=== PATIENT | female | born 1970 | race Caucasian/White ===

== ENCOUNTER → 2017-01-03 | Outpatient (CLI) | payer OTHER | LOC: RAD 14:15 | PROVIDERS: ATTEND Nurse Practitioner Family | DX: I10 Essential (primary) hypertension (principal) ==

== ENCOUNTER → 2017-01-05 | Outpatient (CLI) | payer OTHER ==
--- NOTE | 2017-01-05 13:07 | Diagnostic Imaging Report ---
EXAMINATION: Duplex vascular ultrasound. INDICATION: Sudden onset hypertension. FINDINGS: The right kidney is 9.2 and the left kidney is 10.3 cm in length. There is no hydronephrosis or focal lesion. The right renal artery is obscured by bowel gas. The resistive index in the right kidney is 0.52 to 0.59 with dampening of the amplitude seen. The left renal artery is obscured in its proximal and mid aspect by bowel gas. The distal renal artery velocity is 69 cm/s. The resistive index in the left kidney is in the range of 0.57 to 0.68. IMPRESSION: The renal arteries are largely obscured. There is diminished amplitude of the arterial waveforms in the right kidney which could correlate with renal artery stenosis. Evaluation with CTA or MRA of the abdomen is recommended. Dictated by: Dictated on workstation # [id number]
== END ==
LOC: RAD 08:04
PROVIDERS: ATTEND Nurse Practitioner Family
DX: I10 Essential (primary) hypertension (principal)
CPT/HCPCS: 93975

== ENCOUNTER 2017-01-09 19:40 | Observation (INO) | payer OTHER ==
[~2017-01-09] VITALS: Ht 175.3 cm; Wt 88.0 kg
[2017-01-09] MEDS ORDERED: TETANUS,DIPTH,PERTUSS P/F (BOOSTRIX) 0.5 ML VIAL IM ONE (19:45)
[2017-01-09 19:50] LABS: BASOPHILS % (AUTO) 0 % (0-10); EOSINOPHILS # (AUTO) 0.1 10^3/uL (0.0-0.3); EOSINOPHILS % (AUTO) 1 % (0-10); LYMPHOCYTES # (AUTO) 4.3 X 10^3 (1.0-4.0); LYMPHOCYTES % (AUTO) 47 % (12-44); MEAN CORPUSCULAR HEMOGLOBIN 30 PG (25-34); MEAN CORPUSCULAR HGB CONC 33 G/DL (32-36); MEAN CORPUSCULAR VOLUME 90 FL (80-99); MEAN PLATELET VOLUME 12.7 FL (7.4-10.4); MONOCYTES # (AUTO) 0.6 X 10^3 (0.0-1.0); MONOCYTES % (AUTO) 7 % (0-12); NEUTROPHILS # (AUTO) 4.2 X 10^3 (1.8-7.8); NEUTROPHILS % (AUTO) 45 % (42-75); PLATELET COUNT 186 10^3/uL (130-400); RED BLOOD COUNT 4.63 10^6/uL (4.35-5.85); RED CELL DISTRIBUTION WIDTH 12.9 % (10.0-14.5); WHITE BLOOD COUNT 9.3 10^3/uL (4.3-11.0)
[2017-01-09 20:03] LABS: PROTHROMBIN TIME PATIENT 12.9 SEC (12.2-14.7)
[2017-01-09 20:18] LABS: ALANINE AMINOTRANSFERASE 12 U/L (0-55); ALBUMIN 4.4 GM/DL (3.2-4.5); ANION GAP 14 MMOL/L (5-14); ASPARTATE AMINO TRANSFERASE 20 U/L (5-34); BILIRUBIN,TOTAL 0.5 MG/DL (0.1-1.0); BLOOD UREA NITROGEN 18 MG/DL (7-18); BUN/CREATININE RATIO 16 (0-20); CALCIUM 9.2 MG/DL (8.5-10.1); CARBON DIOXIDE 22 MMOL/L (21-32); CHLORIDE 101 MMOL/L (98-107); CREATINE KINASE 87 U/L (29-168); CREATININE SERUM 1.11 MG/DL (0.60-1.30); GFR ESTIMATED 52; GLUCOSE 121 MG/DL (70-105); HEMOLYSIS 12 (-100-29); ICTERUS 0.5 (-100-1.9); LIPEMIA 1 (-100-49); MAGNESIUM 2.3 MG/DL (1.8-2.4); POTASSIUM 3.7 MMOL/L (3.6-5.0); SODIUM 137 MMOL/L (135-145); TOTAL PROTEIN 7.2 GM/DL (6.4-8.2)
--- NOTE | 2017-01-09 20:33 | Diagnostic Imaging Report ---
PROCEDURE: CT head, face, and cervical spine without contrast. TECHNIQUE: Multiple contiguous axial images were obtained through the head, neck, and facial bones without the use of intravenous contrast. Sagittal and coronal reformations through the cervical spine and facial bones were also performed. INDICATION: Passed out and fell down stairs. Pain and laceration to left chin and upper lip area. Brain: No hemorrhage or infarct is seen. No mass, mass effect or midline shift is noted and there is no hydrocephalus. The calvarium is intact. Paranasal sinuses demonstrate no evidence for acute disease. CT cervical spine: There is straightening of the normal curvature, otherwise normal alignment seen. No compression deformities appreciated. No fractures visualized. The prevertebral soft tissues demonstrate no evidence for acute disease. The lung apices are grossly unremarkable. IMPRESSION: 1. Degenerative findings throughout the cervical spine but no acute disease appreciated. 2. Negative head CT. CT maxillofacial: Diffuse mucosal thickening seen throughout the sinuses. No air-fluid levels appreciated. No displaced fractures are seen. Nasal bones are fairly symmetric bilaterally. Mild soft tissue prominence overlying the chin on the left side likely known injury and secondary hematoma. No adjacent fractures are appreciated. No sagittal reconstructed imaging is provided. IMPRESSION: 1. Chronic change within the osseous structures. Soft tissue abnormality as noted above adjacent to the left aspect of the chin but no acute fractures are appreciated. Dictated by: Dictated on workstation # [id number]
[2017-01-09 20:37] LABS: TROPONIN I < 0.30 NG/ML (<0.30)
--- NOTE | 2017-01-09 21:02 | Diagnostic Imaging Report ---
INDICATION: Fell today. No complaints of back pain EXAMINATION: CT thoracic and lumbar spine dated 01/09/2017 FINDINGS: There is normal height and alignment of the vertebral bodies throughout the thoracic and lumbar spine. No subluxations appreciated. The canal centrally appears to be patent although limited on CT imaging. Several areas of linear lucencies noted scattered throughout the posterior elements of the thoracic and lumbar spine are felt to represent areas of prominent nutrient foramina. No displaced fractures are appreciated. Within the lower lumbar region fairly marked multilevel facet hypertrophy noted. There is sclerosis bilaterally at the SI joints. Multilevel likely central narrowing seen in the lower lumbar region but does not appear significant. This could be better characterized with MRI as clinically warranted. The visualized intra-abdominal structures poorly characterized due to the bone algorithm technique. Prominence of the left renal pelvic region likely due to peripelvic cysts. The visualized lungs demonstrate no evidence for acute disease. IMPRESSION: 1. Multilevel degenerative findings but no acute fractures are appreciated. If pain persists, MRI recommended. Other incidental findings as noted above. Dictated by: Dictated on workstation # [id number]
--- NOTE | 2017-01-09 21:46 | Diagnostic Imaging Report ---
INDICATION: Passed out, fell down. Pain EXAMINATION: Chest 01/09/17 FINDINGS: The osseous structures are overall somewhat sclerotic in appearance but fairly homogeneous; correlate clinically. There are no fractures appreciated. The lungs are clear. No infiltrates or effusions are seen and there is no pneumothorax. Heart and pulmonary vasculature unremarkable. IMPRESSION: 1. No acute process. Dictated by: Dictated on workstation # [id number]
--- NOTE | 2017-01-09 21:46 | Diagnostic Imaging Report ---
INDICATION: Fell down stairs, pain. EXAMINATION: Pelvis, 01/09/2017. FINDINGS: There is no evidence for an acute fracture or dislocation. The joint spaces are well maintained. There is no significant soft tissue swelling. IMPRESSION: No acute process. Dictated by: Dictated on workstation # [id number]
[2017-01-09 22:06] LABS: BILIRUBIN,URINE NEGATIVE (NEGATIVE); KETONES,URINE NEGATIVE (NEGATIVE); LEUKOCYTE ESTERASE ,URINE NEGATIVE (NEGATIVE); NITRITE,URINE NEGATIVE (NEGATIVE); PH,URINE 6.5 (5-9); PROTEIN,URINE 1+ (NEGATIVE); UROBILINOGEN,URINE NORMAL (NORMAL)
[2017-01-09 22:20] LABS: SQUAMOUS EPITHELIAL CELL,UR RARE /HPF
[2017-01-09 22:45] VITALS: BP 166/77
[2017-01-09 23:00] VITALS: BP 158/79
[2017-01-09 23:15] VITALS: BP 136/71
[2017-01-09] MEDS ORDERED: TRIM/SULFAMETH 160/800 (SEPTRA DS) TAB PO ONE (23:15)
[2017-01-09 23:30] VITALS: BP 138/80
[2017-01-10] VITALS (17 sets, daily range): BP systolic 117–159; BP diastolic 57–88
[2017-01-10] MEDS ORDERED: ONDANSETRON 8 MG (ZOFRAN) ORAL DISSOLVE TAB PO PRN
[2017-01-10] MEDS: ACETAMINOPHEN 500 MG TAB (TYLENOL) PO PRN ×3 (00:04→21:29)
[2017-01-10 02:29] LABS: MYOGLOBIN SERUM 67.8 NG/ML (10.0-92.0); TROPONIN I < 0.30 NG/ML (<0.30)
--- NOTE | 2017-01-10 05:25 | ED General ---
General Chief Complaint: Trauma-Non Activation Stated Complaint: SYNCOPE,CLOSED HEAD INJ,FACIAL ABRASIONS Nursing Triage Note: Pt. became dizzy while walking and fell down her basement stairs. Nursing Sepsis Screen: No Definite Risk Source of Information: Patient, EMS History of Present Illness Time Seen by Provider: 19:37 Initial Comments PT ARRIVES VIA EMS FROM HOME--IN C-COLLAR PT WAS WALKING UP BASEMENT STAIRS AND PASSED OUT-- FOUND HER AT THE BOTTOM OF THE STAIRS DURATION OF LOSS OF CONSCIOUSNESS IS UNKNOWN PT WAS ABLE TO STAND WITH 'S ASSIST, AND NO PAIN IN LEGS OR ARMS NO BACK PAIN NO HEADACHE NO VISION CHANGES NO CHEST PAIN NO SHORTNESS OF BREATH NO PALPITATIONS EMS REPORT THAT PT DID C/O NECK PAIN WHEN THEY PALPATED IT, SO C-COLLAR WAS PLACED. NO PARESTHESIAS OR MOTOR DEFICITS PT HAS ABRASIONS TO NOSE, MOUTH AND CHIN PT C/O BEING VERY WEAK, DIZZY AND NAUSEATED ACCUCHECK 133 BY EMS VITALS WERE NORMAL FOR EMS--BP 120/65, HR 72, O2 SAT 96% ON ROOM AIR PT DOES NOT HAVE A PRIOR HISTORY OF SYNCOPE PT HAS BEEN TO [facility] X 2 IN THE LAST WEEK FOR NEW ONSET OF HTN--STARTED ON LISINOPRIL STATES BP HAS BEEN GOING UP REALLY HIGH--UP TO 190'S, AND THEN DROPPING REAL LOW. PT SAW DR. BRYANT IN FOLLOW UP AND RENAL ULTRASOUND WAS ORDERED PT STATES SHE HAS BEEN FEELING VERY WEAK ALL DAY TODAY AND FOR SEVERAL DAYS PT HAS HAD MUCH FATIGUE WITH MINIMAL EXERTION FOR SEVERAL WEEKS Allergies and Home Medications Allergies Coded Allergies: No Known Drug Allergies (Unverified , 01/09/17) Constitutional: No chills, No diaphoresis, dizziness, malaise, weakness EENTM: other (ABRASIONS TO NOSE, UPPER LIP AND CHIN, WITH LACERATION TO INNER ASPECT OF LEFT UPPER LIP) Respiratory: no symptoms reported Cardiovascular: see HPI, No chest pain, No edema, No Hx of Intervention, No palpitations, syncope, No vascular heart diseas Gastrointestinal: see HPI, nausea, No vomiting Genitourinary: no symptoms reported : No Musculoskeletal: see HPI, neck pain, other (FACIAL PAIN) Skin: see HPI, other (FACIAL ABRASIONS) Psychiatric/Neurological: See HPI, Denies Headache, Denies Numbness, Denies Paresthesia, Denies Seizure, Other (SYNCOPE, GENERALIZED WEAKNESS) Hematologic/Lymphatic: No Symptoms Reported Immunological/Allergic: no symptoms reported Past Snpufio-Lyopwl-Pzaiad Hx Patient Social History Alcohol Use: Occasionally Uses Recreational Drug Use: No Smoking Status: Current Everyday Smoker Type Used: Cigarettes Recent Foreign Travel: No Contact w/Someone Who Travel: No Recent Infectious Disease Expo: No Recent Hopitalizations: No Physical Abuse Screen: No Sexual Abuse: No Immunizations Up To Date PED Vaccines UTD: No Seasonal Allergies Seasonal Allergies: No Surgeries HX Surgeries: No Respiratory Hx Respiratory Disorders: No Cardiovascular Hx Cardiac Disorders: Yes (NEW DX 12/2016) Cardiac Disorders: Hypertension Neurological Hx Neurological Disorders: No Reproductive System : No HIV/AIDS: No Female Reproductive Disorders: Denies Genitourinary Hx Genitourinary Disorders: No Gastrointestinal Hx Gastrointestinal Disorders: No Musculoskeletal Hx Musculoskeletal Disorders: Yes Musculoskeletal Disorders: Fibromyalgia Endocrine Hx Endocrine Disorders: No HEENT HX ENT Disorders: No Cancer Hx Cancer: Yes Cancer: Skin Psychosocial Hx Psychiatric Problems: Yes Behavioral Health Disorders: ADD/ADHD, Anxiety Integumentary HX Skin/Integumentary Disorder: No Blood Transfusions Adverse Reaction to a Blood Tr: No Family Medical History Family Medial History: Diabetes mellitus 19 FATHER Hypertension 19 FATHER Physical Exam Vital Signs Vital Sign - Last 12Hours Capillary Refill : NONELess Than 3 Seconds General Appearance: No Apparent Distress, WD/WN HEENT: PERRL/EOMI, TMs Normal, Other (ABRASIONS TO NASOLABIAL AREA, UPPER LIP AND CHIN. LACERATION TO INNER ASPECT OF LEFT UPPER LIP. NO DENTAL INJURY. NO JAW PAIN OR TRISMUS. ) Neck: Other (IN CERVICAL COLLAR ON ARRIVAL) Respiratory: Chest Non Tender, Normal Breath Sounds, No Accessory Muscle Use, No Respiratory Distress Cardiovascular: Regular Rate, Rhythm, No Edema, No JVD, No Murmur, Normal Peripheral Pulses Gastrointestinal: Normal Bowel Sounds, No Organomegaly, No Pulsatile Mass, Non Tender, Soft Back: Normal Inspection, No CVA Tenderness, No Vertebral Tenderness Extremity: Normal Capillary Refill, Normal Inspection, Normal Range of Motion, Non Tender, No Calf Tenderness, No Pedal Edema Neurologic/Psychiatric: Alert, Oriented x3, No Motor/Sensory Deficits, Normal Mood/Affect, hose seamer II-XII Norm as Tested Skin: Normal Color, Warm/Dry, Other (ABRASIONS NOTED ABOVE) Progress/Results/Core Measures Results/Orders Lab Results Laboratory Tests Test 01/09/17 19:40 01/09/17 21:50 01/10/17 01:58 Range/Units White Blood Count 9.3 4.3-11.0 10^3/uL Red Blood Count 4.63 4.35-5.85 10^6/uL Hemoglobin 13.8 11.5-16.0 G/DL Hematocrit 42 35-52 % Mean Corpuscular Volume 90 80-99 FL Mean Corpuscular Hemoglobin 30 25-34 PG Mean Corpuscular Hemoglobin Concent 33 32-36 G/DL Red Cell Distribution Width 12.9 10.0-14.5 % Platelet Count 186 130-400 10^3/uL Mean Platelet Volume 12.7 H 7.4-10.4 FL Neutrophils (%) (Auto) 45 42-75 % Lymphocytes (%) (Auto) 47 H 12-44 % Monocytes (%) (Auto) 7 0-12 % Eosinophils (%) (Auto) 1 0-10 % Basophils (%) (Auto) 0 0-10 % Neutrophils # (Auto) 4.2 1.8-7.8 X 10^3 Lymphocytes # (Auto) 4.3 H 1.0-4.0 X 10^3 Monocytes # (Auto) 0.6 0.0-1.0 X 10^3 Eosinophils # (Auto) 0.1 0.0-0.3 10^3/uL Basophils # (Auto) 0.0 0.0-0.1 10^3/uL Prothrombin Time 12.9 12.2-14.7 SEC INR Comment 1.0 0.8-1.4 Activated Partial Thromboplast Time 26 24-35 SEC Sodium Level 137 135-145 MMOL/L Potassium Level 3.7 3.6-5.0 MMOL/L Chloride Level 101 98-107 MMOL/L Carbon Dioxide Level 22 21-32 MMOL/L Anion Gap 14 5-14 MMOL/L Blood Urea Nitrogen 18 7-18 MG/DL Creatinine 1.11 0.60-1.30 MG/DL Estimat Glomerular Filtration Rate 52 BUN/Creatinine Ratio 16 0-20 Glucose Level 121 H 70-105 MG/DL Calcium Level 9.2 8.5-10.1 MG/DL Magnesium Level 2.3 1.8-2.4 MG/DL Total Bilirubin 0.5 0.1-1.0 MG/DL Aspartate Amino Transf (AST/SGOT) 20 5-34 U/L Alanine Aminotransferase (ALT/SGPT) 12 0-55 U/L Alkaline Phosphatase 47 40-136 U/L Total Creatine Kinase 87 29-168 U/L Creatine Kinase MB 0.7 <6.6 NG/ML Troponin I < 0.30 < 0.30 <0.30 NG/ML B-Type Natriuretic Peptide < 10.0 <100.0 PG/ML Total Protein 7.2 6.4-8.2 GM/DL Albumin 4.4 3.2-4.5 GM/DL TSH [place] Testing 1.72 0.35-4.94 UIU/ML Urine Color YELLOW Urine Clarity CLEAR Urine pH 6.5 5-9 Urine Specific [place] 1.010 L 1.016-1.022 Urine Protein 1+ H NEGATIVE Urine Glucose (UA) NEGATIVE NEGATIVE Urine Ketones NEGATIVE NEGATIVE Urine Nitrite NEGATIVE NEGATIVE Urine Bilirubin NEGATIVE NEGATIVE Urine Urobilinogen NORMAL NORMAL MG/DL Urine Leukocyte Esterase NEGATIVE NEGATIVE Urine RBC (Auto) 2+ H NEGATIVE Urine RBC NONE /HPF Urine WBC NONE /HPF Urine Squamous Epithelial Cells RARE /HPF Urine Crystals NONE /LPF Urine Bacteria TRACE /HPF Urine Casts NONE /LPF Urine Mucus NEGATIVE /LPF Urine Culture Indicated NO Myoglobin 67.8 10.0-92.0 NG/ML My Orders Orders - NESTOR COOK DO Saline Lock/Iv-Start (01/09/17 19:43) Ekg Tracing (01/09/17 19:43) Monitor-Rhythm Ecg Trace Only (01/09/17 19:43) Ct Head/Face/Cervical Wo (01/09/17 19:43) Ct Thoracic/Lumbar Spine Wo (01/09/17 19:43) BNP (01/09/17 19:43) Cbc With Automated Diff (01/09/17 19:43) Comprehensive Metabolic Panel (01/09/17 19:43) Creatine Kinase (01/09/17 19:43) Creatine Kinase Mb (01/09/17 19:43) Magnesium (01/09/17 19:43) Protime With Inr (01/09/17 19:43) Partial Thromboplastin Time (01/09/17 19:43) Thyroid Analyzer (01/09/17 19:43) Troponin I (01/09/17 19:43) Ua Culture If Indicated (01/09/17 19:43) Chest 1 View, Ap/Pa Only (01/09/17 19:43) Pelvis (01/09/17 19:43) Dipht,Pertuss(Acell),Tet Adult (Boostrix (01/09/17 19:45) Mupirocin Ointment (Bactroban Ointment (01/10/17 09:00) Wound Dressing-Ed (01/09/17 21:27) Medications Given in ED Current Medications Medications Dose Ordered Sig/Ila Route Start Time Stop Time Status Last Admin Dose Admin Diphtheria/ Tetanus/Acell Pertussis 0.5 ml ONCE ONCE IM 01/09/17 19:45 01/09/17 19:46 DC 01/09/17 21:25 0.5 ML Vital Signs/I&O Vital Sign - Last 12Hours 01/09/17 01/09/17 01/09/17 01/09/17 19:49 19:49 22:03 23:45 Temp 98.4 98.7 Pulse 74 74 86 56 Resp 14 14 14 B/P (MAP) 144/74 144/74 (97) Pulse Ox 98 98 98 O2 Delivery Room Air Room Air Room Air 01/10/17 01/10/17 01/10/17 01/10/17 00:00 00:00 00:00 01:00 Temp 98.4 Pulse 56 64 Resp 16 B/P (MAP) 146/81 Pulse Ox 97 96 O2 Delivery Room Air Room Air Room Air 01/10/17 03:54 Temp 98.3 Pulse 75 Resp 18 B/P (MAP) 130/75 Pulse Ox 98 O2 Delivery Room Air Blood Pressure Mean: 93 Progress Note : Progress Note NO DETERIORATION IN PT'S CONDITION DURING ER STAY ECG Initial ECG Impression Time: 19:45 Initial ECG Rate: 63 Initial ECG Rhythm: Normal Sinus Initial ECG Comparisson: No Previous ECG Available Diagnostic Imaging Comments CT HEAD/MAXILLOFACIALS/CERVICAL SPINE--NO ACUTE PROCESS--PER RADIOLOGIST VIA PHONE AT 2045 CT THORACIC AND LUMBAR SPINE--NO ACUTE PROCESS, PER RADIOLOGIST REPORTS AT 2199 CXR--NO ACUTE PROCESS, PER RADIOLOGIST REPORT @ 2199 PELVIS XRAY--NO ACUTE PROCESS, PER RADIOLOGIST REPORT @ 2200 Reviewed: Reviewed by Me, Discussed w/Radiologist Departure Communication Progress Notes 2115--SPOKE WITH DR. DONNELLY, ACCEPTS PT FOR ADMIT. WILL HAVE CARDIOLOGY CONSULTED IN AM Impression Impression: Primary Impression: Syncope Additional Impressions: Closed head injury LABILE HTN--NEW DX OF HTN FACIAL ABRASIONS HEAD AND FACIAL CONTUSIONS CERVICAL SPINE STRAIN Huacwudlvu-mslqwvvnd-vlovsay (DPT) vaccination administered at current visit Disposition: ADMITTED INPATIENT Condition: Improved Departure-Patient Inst. Referrals: ELEONORA BRYANT DO (PCP) Primary Care Physician NESTOR COOK DO Jan 10, 2017 05:25
[2017-01-10 06:48] LABS: BASOPHILS % (AUTO) 0 % (0-10); EOSINOPHILS # (AUTO) 0.1 10^3/uL (0.0-0.3); EOSINOPHILS % (AUTO) 1 % (0-10); LYMPHOCYTES # (AUTO) 3.3 X 10^3 (1.0-4.0); LYMPHOCYTES % (AUTO) 35 % (12-44); MEAN CORPUSCULAR HEMOGLOBIN 29 PG (25-34); MEAN CORPUSCULAR HGB CONC 33 G/DL (32-36); MEAN CORPUSCULAR VOLUME 90 FL (80-99); MEAN PLATELET VOLUME 12.3 FL (7.4-10.4); MONOCYTES # (AUTO) 0.7 X 10^3 (0.0-1.0); MONOCYTES % (AUTO) 8 % (0-12); NEUTROPHILS # (AUTO) 5.4 X 10^3 (1.8-7.8); NEUTROPHILS % (AUTO) 56 % (42-75); PLATELET COUNT 186 10^3/uL (130-400); RED BLOOD COUNT 4.57 10^6/uL (4.35-5.85); RED CELL DISTRIBUTION WIDTH 12.9 % (10.0-14.5); WHITE BLOOD COUNT 9.6 10^3/uL (4.3-11.0)
[2017-01-10 07:04] LABS: ALANINE AMINOTRANSFERASE 11 U/L (0-55); ALBUMIN 4.2 GM/DL (3.2-4.5); ANION GAP 11 MMOL/L (5-14); ASPARTATE AMINO TRANSFERASE 17 U/L (5-34); BILIRUBIN,TOTAL 0.6 MG/DL (0.1-1.0); BLOOD UREA NITROGEN 14 MG/DL (7-18); BUN/CREATININE RATIO 15 (0-20); CALCIUM 9.1 MG/DL (8.5-10.1); CARBON DIOXIDE 23 MMOL/L (21-32); CHLORIDE 104 MMOL/L (98-107); CREATININE SERUM 0.94 MG/DL (0.60-1.30); GFR ESTIMATED > 60; GLUCOSE 95 MG/DL (70-105); HEMOLYSIS 8 (-100-29); ICTERUS 0.6 (-100-1.9); LIPEMIA 3 (-100-49); POTASSIUM 3.7 MMOL/L (3.6-5.0); SODIUM 138 MMOL/L (135-145); TOTAL PROTEIN 6.8 GM/DL (6.4-8.2)
[2017-01-10] MEDS ORDERED: ONDANSETRON 4 MG/2 ML (SDV) Z0FRAN ONE (08:33)
[2017-01-10] MEDS ORDERED: DULO60CA6 PO (08:34)
[2017-01-10] MEDS ORDERED: LISI1TAB8 PO (08:34)
[2017-01-10] MEDS ORDERED: DEXT10TA9 PO (08:40)
[2017-01-10] MEDS: TRIM/SULFAMETH 160/800 (SEPTRA DS) TAB PO SCH ×2 (08:42→17:58)
[2017-01-10] MEDS ORDERED: PATIENT MAY USE OWN MEDS, ALL MC SCH (08:45)
[2017-01-10] MEDS ORDERED: ONDANSETRON 4 MG/2 ML (SDV) Z0FRAN IVP PRN (08:45)
[2017-01-10] MEDS ORDERED: MUPIROCIN 2% OINT 22 GM (BACTROBAN) TUBE TOP SCH (09:00)
--- NOTE | 2017-01-10 09:22 | Diagnostic Imaging Report ---
PROCEDURE: US Carotid Duplex Bilateral. TECHNIQUE: Multiple real-time grayscale images were obtained over the carotid arteries in various projections bilaterally. Additional duplex Doppler and color Doppler images were also obtained. INDICATION: Syncope. FINDINGS: There is no atherosclerotic plaque seen at either carotid bifurcation. The velocities and waveforms appear normal. Both vertebral arteries are patent with antegrade flow. IMPRESSION: Negative carotid Doppler. Dictated by: Dictated on workstation # [id number]
--- NOTE | 2017-01-10 09:46 | Consultation-Cardiology ---
HPI-Cardiology Cardiology Consultation: Date of Consultation 01/10/17 Date of Admission 01-09-17 Attending Physician Indira Senior DO Admitting Physician Indira Senior DO Consulting Physician Renata Henson MD HPI: Chief Complaint: Syncope Ms. Palacios is a 46 year old female admitted to 403 from the ED. She reports over the course of the last 2 weeks her blood pressure at home has been elevated. She was in [place], [place] visiting a friend and took her blood pressure which she noted to be elevated at 190 systolic. She reports she went to the ED at [facility] in [place] and was given Lisinopril/HCTZ 10/12.5mg and released. She reports her blood pressure was still running high and she was seen last week by her PCP here and her medication was increased to Lisinopril/HCTZ 20.12.5mg. She reports she has been feeling generally unwell for the last couple weeks and has progressively been feeling much worse the last 3-4 days. She reports decrease appetite, energy and difficulty focusing. She states she has been feeling short of breath with strenuous exertion. She reports yesterday she was doing laundry. She walked up the stairs and began to feel "extremely fatigued" she reports she sat down on the top step and the next thing she recalls she was at the bottom of the staircase. She remembers calling for her . He is at the bedside. He states she was pale and awake at the bottom of the stairs. He reports she kept trying to get up, but was unable to. He reports she was having difficulty following conversation and was flailing. He reports she finally crawled up the stairs and sat in a chair, but she would try to sit up in the chair and her eyes would roll back and she would fall back into the chair. He states this went on for at least 5 minutes. She reports her blood pressure has been high during the day per her cuff, but by evening her blood pressure is dropping low. She reports she has been having a lot of back pain. She currently reports continued decrease appetite. She reports some continued dizziness when up, but no further syncope or near syncope. Had an anti-htn regimen initiated only days prior to admission and had been feeling dizzy since; had also had low oral intake lately Review of Systems-Cardiology Review of Systems Time Seen by Provider: 10:00 Constitutional: As described under HPI Eyes: No blurred vision, No drainage, No pain, No vision change Ears/Nose/Throat: No ear discharge, No ear pain, No nasal drainage, No ulcerations Respiratory: As described under HPI Cardiovascular: As described under HPI Gastrointestinal: No constipation, No diarrhea, nausea, poor appetite, No vomiting, No stool coloration changes Genitourinary: No dysuria, No discharge, No frequency, No hematuria, No urgency : No Musculoskeletal: back pain, muscle pain (chronic) Skin: No rash, No skin related problems, No ulcerations Psychiatric/Neurological: As described under HPI, No anxiety, No depression, No focal weakness, No seizure, No syncope Hematologic: No bleeding abnormalities MVI-Wdwuvh-Mmwttm Hx Patient Social History Alcohol Use: Occasionally Uses Recreational Drug Use: No Smoking Status: Current Everyday Smoker Type Used: Cigarettes Recent Foreign Travel: No Recent Infectious Disease Expo: No Physical Abuse Screen: No Sexual Abuse: No Past Medical History PMH As described under Assessment. Family Medical History Family Medical History: She reports her father has diabetes and hypertension. She reports her mother has CHF. She does not report any premature CAD or SCD. Family History: 19 FATHER Hypertension Diabetes mellitus Allergies and Home Medications Allergies Coded Allergies: No Known Drug Allergies (Unverified , 01/09/17) Home Medications Dextroamphetamine/Amphetamine 10 Mg Cap.er.24h, 10 MG PO DAILY PRN for CONCENTRATION/FIBROMYALGIA, (Reported) Duloxetine HCl 60 Mg Capsule.dr, 60 MG PO HS, (Reported) Lisinopril/Hydrochlorothiazide 1 Each Tablet, 1 TAB PO DAILY, (Reported) Physical Exam-Cardiology Physical Exam Vital Signs/I&O Vital Sign - Last 12Hours 01/10/17 01/10/17 01/10/17 01/10/17 07:00 07:22 08:00 11:38 Temp 98.3 Pulse 70 64 Resp 18 B/P (MAP) 121/69 149/76 (100) Pulse Ox 96 O2 Delivery Room Air Room Air 01/10/17 01/10/17 01/10/17 01/10/17 11:38 11:38 11:39 13:00 Temp 98.9 Pulse 60 Resp 14 B/P (MAP) 117/77 (90) 140/71 (94) 117/77 Pulse Ox 96 O2 Delivery Room Air Room Air 01/10/17 01/10/17 13:21 15:56 Temp 98.6 Pulse 66 59 Resp 16 B/P (MAP) 159/74 Pulse Ox 94 O2 Delivery Room Air Capillary Refill : NONELess Than 3 Seconds Constitutional: AAO x 3 HEENT: PERRL, No discharge, hearing is well preserved, oral hygience is good, No ulceration, No xanthelasmas are seen Neck: No carotid bruit, carotid pulses are 2 + bilaterally Respiratory: No accessory muscle use, No respiratory distress, chest expansion is symmetric, chest is bilaterally symmetric, lungs clear to auscultation Cardiovascular: regular rate-rhythm, No JVD, S1 and S2 Gastrointestinal: No tender, soft, audible bowel sounds Rectal: deferred Extremities: No significant edema Neurologic/Psychiatric: grossly intact Skin: other (abrasions to left side of her note and upper lip) Data Review Labs Laboratory Tests 01/09/17 19:40: White Blood Count 9.3, Red Blood Count 4.63, Hemoglobin 13.8, Hematocrit 42, Mean Corpuscular Volume 90, Mean Corpuscular Hemoglobin 30, Mean Corpuscular Hemoglobin Concent 33, Red Cell Distribution Width 12.9, Platelet Count 186, Mean Platelet Volume 12.7H, Neutrophils (%) (Auto) 45, Lymphocytes (%) (Auto) 47H, Monocytes (%) (Auto) 7, Eosinophils (%) (Auto) 1, Basophils (%) (Auto) 0, Neutrophils # (Auto) 4.2, Lymphocytes # (Auto) 4.3H, Monocytes # (Auto) 0.6, Eosinophils # (Auto) 0.1, Basophils # (Auto) 0.0, Prothrombin Time 12.9, INR Comment 1.0, Activated Partial Thromboplast Time 26, Sodium Level 137, Potassium Level 3.7, Chloride Level 101, Carbon Dioxide Level 22, Anion Gap 14, Blood Urea Nitrogen 18, Creatinine 1.11, Estimat Glomerular Filtration Rate 52, BUN/Creatinine Ratio 16, Glucose Level 121H, Calcium Level 9.2, Magnesium Level 2.3, Total Bilirubin 0.5, Aspartate Amino Transf (AST/SGOT) 20, Alanine Aminotransferase (ALT/SGPT) 12, Alkaline Phosphatase 47, Total Creatine Kinase 87, Creatine Kinase MB 0.7, Troponin I < 0.30, B-Type Natriuretic Peptide < 10.0 , Total Protein 7.2, Albumin 4.4, TSH [place] Testing 1.72 01/09/17 21:50: Urine Color YELLOW, Urine Clarity CLEAR, Urine pH 6.5, Urine Specific [place] 1.010L, Urine Protein 1+H, Urine Glucose (UA) NEGATIVE, Urine Ketones NEGATIVE, Urine Nitrite NEGATIVE, Urine Bilirubin NEGATIVE, Urine Urobilinogen NORMAL, Urine Leukocyte Esterase NEGATIVE, Urine RBC (Auto) 2+H, Urine RBC NONE, Urine WBC NONE, Urine Squamous Epithelial Cells RARE, Urine Crystals NONE, Urine Bacteria TRACE, Urine Casts NONE, Urine Mucus NEGATIVE, Urine Culture Indicated NO 01/10/17 01:58: Troponin I < 0.30, Myoglobin 67.8 01/10/17 06:27: White Blood Count 9.6, Red Blood Count 4.57, Hemoglobin 13.4, Hematocrit 41, Mean Corpuscular Volume 90, Mean Corpuscular Hemoglobin 29, Mean Corpuscular Hemoglobin Concent 33, Red Cell Distribution Width 12.9, Platelet Count 186, Mean Platelet Volume 12.3H, Neutrophils (%) (Auto) 56, Lymphocytes (%) (Auto) 35 , Monocytes (%) (Auto) 8, Eosinophils (%) (Auto) 1, Basophils (%) (Auto) 0, Neutrophils # (Auto) 5.4, Lymphocytes # (Auto) 3.3, Monocytes # (Auto) 0.7, Eosinophils # (Auto) 0.1, Basophils # (Auto) 0.0, Sodium Level 138, Potassium Level 3.7, Chloride Level 104, Carbon Dioxide Level 23, Anion Gap 11, Blood Urea Nitrogen 14, Creatinine 0.94, Estimat Glomerular Filtration Rate > 60, BUN/ Creatinine Ratio 15, Glucose Level 95, Calcium Level 9.1, Total Bilirubin 0.6, Aspartate Amino Transf (AST/SGOT) 17, Alanine Aminotransferase (ALT/SGPT) 11, Alkaline Phosphatase 44, Total Protein 6.8, Albumin 4.2 Radiology NAME: EUGENIE PALACIOS [facility] REC#: [id number] PT STATUS: ADM Luis Antonio : 1970 PHYSICIAN: NESTOR COOK DO ADMIT DATE: 01/09/17 Draft Date of Exam:01/09/17 CHEST 1 VIEW, AP/PA ONLY INDICATION: Passed out, fell down. Pain EXAMINATION: Chest 01/09/17 FINDINGS: The osseous structures are overall somewhat sclerotic in appearance but fairly homogeneous; correlate clinically. There are no fractures appreciated. The lungs are clear. No infiltrates or effusions are seen and there is no pneumothorax. Heart and pulmonary vasculature unremarkable. IMPRESSION: 1. No acute process. Dictated on workstation # [id number] Dict: 01/09/172139 Trans: 01/09/172145 JAMEY [id number] Interpreted by: PROSPER MUHAMMAD MD Electronically signed by: NAME: EUGENIE PALACIOS [facility] REC#: [id number] PT STATUS: ADM Luis Antonio : 1970 PHYSICIAN: RAMÓN DONNELLY DO ADMIT DATE: 01/09/17 Draft Date of Exam:01/10/17 US CAROTID RU COMPLETE [id number] PROCEDURE: US Carotid Duplex Bilateral. TECHNIQUE: Multiple real-time grayscale images were obtained over the carotid arteries in various projections bilaterally. Additional duplex Doppler and color Doppler images were also obtained. INDICATION: Syncope. FINDINGS: There is no atherosclerotic plaque seen at either carotid bifurcation. The velocities and waveforms appear normal. Both vertebral arteries are patent with antegrade flow. IMPRESSION: Negative carotid Doppler. Dictated on workstation # [id number] Dict: 01/10/17 0829 Trans: 01/10/17 0921 [id number] Interpreted by: MARICRUZ CARTY Electronically signed by: ECG Impression ECG Initial ECG Rhythm: Normal Sinus A/P-Cardiology Assessment/Admission Diagnosis Syncopal episode of undetermined etiology - possible orthostatic hypotension, but other etiologies need considered, especially arrhythmic etiologies HTN Exertional dyspnea of undetermined etiology The renal arteries are largely obscured. There is diminished amplitude of the arterial waveforms in the right kidney which could correlate with renal artery stenosis. Evaluation with CTA or MRA of the abdomen is recommended. Per u/s of Fibromyalgia Normal TSH on 01-09-17 Negative carotid duplex of 01-10-17 Discussion and Recomendations Syncopal episode of undetermined etiology. Possibly d/t orthostatic hypotension d/t medications. We will stop antihypertensive. Check ortho v/s. Ambulate in halls. Continue tele to evaluate for possible arrhythmia or bradycardia. If none found this admission then may need outpt director of cardiac cath lab. Continue to monitor lab. Further recommendations will be based on her hospital course. We would like to thank the medical services for this consult. This consult is being scribed by Cande Tony APRN on behalf of Dr. Henson after discussion regarding plan of care. Clinical Quality Measures DVT/VTE Risk/Contraindication: Risk Factor Score Per Nursin RFS Level Per Nursing on Admit: 3=High Physician Assessment Physician Assessment Lungs: clear Cor: reg A&R * As documented in our note above that I updated at the time of this writing ( italics) * Echo to eval for structural heart disease * Exercise stress echo to eval for ischemic heart disease or exercise-induced arrhythmia * If above studies are negative, then consider placement of implantable loop recorder to monitor for arrhythmia * Hold off on anti-htn regimen for now * Renal artery u/s was inconclusive. She may have renal artery stenosis as the basis for hypertension, but hypertension would not account for syncope (hypo tension would); accordingly, further investigation for CLAUDINE can be undertaken as an outpatient (CT angiography of renal arteries) * I spoke with her and her family in detail and answered questions ALISON TONY Jan 10, 2017 09:46 RENATA HENSON MD [facility] Jan 10, 2017 18:15
[2017-01-10] MEDS ORDERED: AMPH10CA PO (10:02)
[2017-01-10] MEDS: MUPIROCIN 2% OINT 22 GM (BACTROBAN) TUBE TOP SCH ×2 (14:42→20:31)
--- NOTE | 2017-01-10 18:18 | History & Physicial ---
History of Present Illness History of Present Illness Reason for visit/HPI This is a 46 year old female with a history of recent hypertension. She has been taking lisinopril HCT with her blood pressure running higher during the day and then dropping in the evenings. She has had some nausea and dizziness. She was coming up the stairs at home and had a syncopal episode falling back down the stairs and striking her neck, head and face. She was brought to the emergency room where she was found to have facial contusions and abrasions. CT scan of the head and cervical spine were negative. Her blood pressure was stable at 144/74. However, it was decided to admit her for further monitoring and observation. Date of Admission Jan 09, 2017 at 21:15 Time Seen by Provider: 08:35 I consulted on this patient on 01/10/17 18:12 Attending Physician Indira Senior DO Admitting Physician Indira Senior DO Consult Allergies and Home Medications Allergies Coded Allergies: No Known Drug Allergies (Unverified , 01/09/17) Home Medications Dextroamphetamine/Amphetamine 10 Mg Cap.er.24h, 10 MG PO DAILY PRN for CONCENTRATION/FIBROMYALGIA, (Reported) Duloxetine HCl 60 Mg Capsule.dr, 60 MG PO HS, (Reported) Lisinopril/Hydrochlorothiazide 1 Each Tablet, 1 TAB PO DAILY, (Reported) Past Lzlxkoq-Krxyts-Oksijd Hx Patient Social History Alcohol Use: Occasionally Uses Recreational Drug Use: No Smoking Status: Current Everyday Smoker Type Used: Cigarettes Physical Abuse Screen: No Sexual Abuse: No Recent Foreign Travel: No Contact w/other who traveled: No Recent Hopitalizations: No Recent Infectious Disease Expo: No Seasonal Allergies Seasonal Allergies: No Surgeries HX Surgeries: No Respiratory Hx Respiratory Disorders: No Cardiovascular Hx Cardiovascular Disorders: Yes (NEW DX 12/2016) Cardiac Disorders: Hypertension Neurological Hx Neurological Disorders: No Reproductive System : No HIV/AIDS: No Female Reproductive Disorders: Denies Genitourinary Hx Genitourinary Disorders: No Gastrointestinal Hx Gastrointestinal Disorders: No Musculoskeletal Hx Musculoskeletal Disorders: Yes Musculoskeletal Disorders: Fibromyalgia Endocrine Hx Endocrine Disorders: No HEENT HX ENT Disorders: No Cancer Hx Cancer: Yes Cancer: Skin Psychosocial Hx Psychiatric Problems: Yes Behavioral Health Disorders: ADD/ADHD, Anxiety Integumentary HX Skin/Integumentary Disorder: No Blood Transfusions Adverse Reaction to a Blood Tr: No Family Medical History Family Hx: Diabetes mellitus 19 FATHER Hypertension 19 FATHER Constitutional: dizziness, weakness EENTM: mouth pain, mouth swelling, nose pain (from pain) Respiratory: No no symptoms reported, No see HPI, No cough, No dyspnea on exertion, No hemoptysis, No orthopnea, No phlegm, No short of breath, No stridor , No wheezing, No other Cardiovascular: syncope Gastrointestinal: No RUQ, No LUQ, No RLQ, No LLQ, No no symptoms reported, No see HPI, No abdominal pain, No constipation, No diarrhea, No dysphagia, No hematemesis, No heartburn, No jaundice, No loss of appetite, No melena, No nausea, No vomiting, No other Genitourinary: No no symptoms reported, No see HPI, No decreased output, No discharge, No dysuria, No frequency, No hematuria, No hesitancy, No incontinence , No nocturia, No pain, No other Musculoskeletal: neck pain Skin: other (facial abrasions) Psychiatric/Neurological: Weakness Physical Exam Vital Signs Vital Sign - Last 12Hours Capillary Refill : NONELess Than 3 Seconds General Appearance: Mild Distress (due to pain in face) Eyes: Bilateral Eye EOMI, Bilateral Eye PERRL HEENT: Other (upper lip and supraorbital area with swelling and abrasion) Neck: Full Range of Motion, Non Tender, Supple Respiratory: Chest Non Tender, Lungs Clear, No Accessory Muscle Use, No Respiratory Distress Cardiovascular: Regular Rate, Rhythm, Systolic Murmur Gastrointestinal: Normal Bowel Sounds, Non Tender, Soft Rectal: Deferred Back: No CVA Tenderness Extremity: Non Tender, No Calf Tenderness, No Pedal Edema Neurologic/Psychiatric: Alert, Oriented x3, Motor Weakness (generalized) Skin: Other (facial swelling and abrasions) Comments Laboratory Tests 01/09/17 19:40: White Blood Count 9.3, Red Blood Count 4.63, Hemoglobin 13.8, Hematocrit 42, Mean Corpuscular Volume 90, Mean Corpuscular Hemoglobin 30, Mean Corpuscular Hemoglobin Concent 33, Red Cell Distribution Width 12.9, Platelet Count 186, Mean Platelet Volume 12.7H, Neutrophils (%) (Auto) 45, Lymphocytes (%) (Auto) 47H, Monocytes (%) (Auto) 7, Eosinophils (%) (Auto) 1, Basophils (%) (Auto) 0, Neutrophils # (Auto) 4.2, Lymphocytes # (Auto) 4.3H, Monocytes # (Auto) 0.6, Eosinophils # (Auto) 0.1, Basophils # (Auto) 0.0, Prothrombin Time 12.9, INR Comment 1.0, Activated Partial Thromboplast Time 26, Sodium Level 137, Potassium Level 3.7, Chloride Level 101, Carbon Dioxide Level 22, Anion Gap 14, Blood Urea Nitrogen 18, Creatinine 1.11, Estimat Glomerular Filtration Rate 52, BUN/Creatinine Ratio 16, Glucose Level 121H, Calcium Level 9.2, Magnesium Level 2.3, Total Bilirubin 0.5, Aspartate Amino Transf (AST/SGOT) 20, Alanine Aminotransferase (ALT/SGPT) 12, Alkaline Phosphatase 47, Total Creatine Kinase 87, Creatine Kinase MB 0.7, Troponin I < 0.30, B-Type Natriuretic Peptide < 10.0 , Total Protein 7.2, Albumin 4.4, TSH [place] Testing 1.72 01/09/17 21:50: Urine Color YELLOW, Urine Clarity CLEAR, Urine pH 6.5, Urine Specific [place] 1.010L, Urine Protein 1+H, Urine Glucose (UA) NEGATIVE, Urine Ketones NEGATIVE, Urine Nitrite NEGATIVE, Urine Bilirubin NEGATIVE, Urine Urobilinogen NORMAL, Urine Leukocyte Esterase NEGATIVE, Urine RBC (Auto) 2+H, Urine RBC NONE, Urine WBC NONE, Urine Squamous Epithelial Cells RARE, Urine Crystals NONE, Urine Bacteria TRACE, Urine Casts NONE, Urine Mucus NEGATIVE, Urine Culture Indicated NO 01/10/17 01:58: Troponin I < 0.30, Myoglobin 67.8 01/10/17 06:27: White Blood Count 9.6, Red Blood Count 4.57, Hemoglobin 13.4, Hematocrit 41, Mean Corpuscular Volume 90, Mean Corpuscular Hemoglobin 29, Mean Corpuscular Hemoglobin Concent 33, Red Cell Distribution Width 12.9, Platelet Count 186, Mean Platelet Volume 12.3H, Neutrophils (%) (Auto) 56, Lymphocytes (%) (Auto) 35 , Monocytes (%) (Auto) 8, Eosinophils (%) (Auto) 1, Basophils (%) (Auto) 0, Neutrophils # (Auto) 5.4, Lymphocytes # (Auto) 3.3, Monocytes # (Auto) 0.7, Eosinophils # (Auto) 0.1, Basophils # (Auto) 0.0, Sodium Level 138, Potassium Level 3.7, Chloride Level 104, Carbon Dioxide Level 23, Anion Gap 11, Blood Urea Nitrogen 14, Creatinine 0.94, Estimat Glomerular Filtration Rate > 60, BUN/ Creatinine Ratio 15, Glucose Level 95, Calcium Level 9.1, Total Bilirubin 0.6, Aspartate Amino Transf (AST/SGOT) 17, Alanine Aminotransferase (ALT/SGPT) 11, Alkaline Phosphatase 44, Total Protein 6.8, Albumin 4.2 Assessment/Plan Assessment and Plan 1. Syncopal Episode with Head, Neck and Facial Trauma--admit and check neuros, monitor on telemetry for arrhythmia, orthostatic blood pressures, check 2-D ECHO and Carotid Dopplers, consult cardiology 2. Hypertension--hold home meds and monitor BP 3. Anxiety--restart Cymbalta Problems: Clinical Quality Measures DVT/VTE Risk/Contraindication: Risk Factor Score Per Nursin RFS Level Per Nursing on Admit: 3=High INDIRA SENIOR DO Jan 10, 2017 18:18
[2017-01-10] MEDS ORDERED: NS 100 ML (IVPB) BAG IV ONE (19:15)
[2017-01-10] MEDS ORDERED: IOHEXOL 350 MG/ML 150 ML (OMNIPAQUE 350) VIAL IV ONE (19:15)
--- NOTE | 2017-01-10 19:51 | Diagnostic Imaging Report ---
EXAM: CTA of the aorta and bilateral runoffs. INDICATION: Left-sided pain. Elevated blood pressure. FINDINGS: There are no previous studies available for comparison. Contiguous axial sections were taken through the abdomen, pelvis and lower extremities following administration of intravenous contrast. Sagittal and coronal reconstructed images were also obtained. The aorta is not aneurysmally dilated and there is no sign of a dissection of the aorta. There is no hemodynamically significant stenosis of the major branches of the aorta. There is generally good arterial blood flow in the common femoral, superficial femoral and popliteal arteries bilaterally. There is no sign of a hemodynamically significant stenosis. The trifurcation arteries are small. There is only a single vessel (posterior tibial artery) runoff to each lower extremity. The liver, spleen, pancreas, adrenals, gallbladder, inferior vena cava and kidneys are unremarkable for an acute abnormality. There are parapelvic cysts involving both kidneys. These have a generally benign appearance. The stomach is partially filled with fluid and consequently difficult to assess. The uterine fundus is prominent but there is no definite fibroid identified. The urinary bladder is grossly unremarkable. The appendix was not well-visualized but there are no indirect signs of acute appendicitis. The bone windows are unremarkable for a fracture or for a destructive lesion. As noted on the CT thoracic and lumbar spine exam performed on 01/09/17 there is degenerative disc and bony disease in the lower thoracic and lower lumbar spine. The lung bases are clear. IMPRESSION: 1. There is no evidence for an aneurysm of the aorta. There is no sign of a dissection either. 2. There is good arterial blood flow in the common femoral, superficial femoral and popliteal arteries. There is no hemodynamically significant stenosis of the trifurcation arteries but the trifurcation arteries are small and there is only a single vessel (posterior tibial artery) runoff to the ankle joints. 3. There is no acute abnormality the abdomen or pelvis. 4. There are bilateral parapelvic cysts. 5. There is degenerative disc and bony disease involving the thoracic and lumbar spine. Dictated by: Dictated on workstation # [id number]
[2017-01-10] MEDS ORDERED: DULoxetine 30 MG (CYMBALTA) CAP PO SCH (21:00)
[2017-01-11] VITALS (7 sets, daily range): BP systolic 137–182; BP diastolic 66–89
[2017-01-11] MEDS: TRIM/SULFAMETH 160/800 (SEPTRA DS) TAB PO SCH ×2 (06:12→17:02)
[2017-01-11] MEDS: MUPIROCIN 2% OINT 22 GM (BACTROBAN) TUBE TOP SCH (08:26)
--- NOTE | 2017-01-11 11:08 | Progress Note-Cardiology ---
Cardiology SOAP Progress Note Subjective: Sitting up in bed. No further c/o syncope or near syncope. No c/o CP, dyspnea or palpitations. She times the onset of dizziness and poor appetite and low oral intake to the time of initiation of her anti-htn regimen Objective: I&O/Vital Signs Vital Sign - Last 12Hours 01/11/17 01/11/17 01/11/17 01/11/17 07:00 08:30 10:05 10:06 Temp 98.2 Pulse 68 70 Resp 20 B/P (MAP) 137/80 137/80 (99) 146/80 (102) Pulse Ox 95 O2 Delivery Room Air 01/11/17 01/11/17 01/11/17 01/11/17 10:06 12:00 12:00 12:00 Temp 97.7 Pulse 63 Resp 20 B/P (MAP) 151/89 (109) 168/77 (107) 182/81 (114) Pulse Ox 97 O2 Delivery Room Air 01/11/17 01/11/17 12:00 13:00 Pulse 56 B/P (MAP) 158/70 (99) Intake and Output 01/11/17 00:00 Intake Total 1290 ml Balance 1290 ml Weight (Pounds): 194 Weight (Ounces): 0.0 Weight (Calculated Kilograms): [id number] Constitutional: AAO x 3 Respiratory: No accessory muscle use, No respiratory distress, chest expansion is symmetric, chest is bilaterally symmetric, lungs clear to auscultation Cardiovascular: regular rate-rhythm, No JVD, S1 and S2 Gastrointestional: No tender, soft, audible bowel sounds Extremities: No significant edema Neurologic/Psychiatric: grossly intact Skin: other (abrasions to left side of her note and upper lip) A/P: Assessment: Syncopal episode of undetermined etiology - possible orthostatic hypotension, but other etiologies need considered, especially arrhythmic etiologies Echo and exercise-stress echo on 01/11/17 did not indicate cardiomyopathy or ischemic heart disease or exercise-induced arrhythmia Labile hypertension, the hypertensive component of which appears to be white- coat hypertension Syncope likely due to orthostatic hypotension following initiation of an anti- htn regimen recently The renal arteries are largely obscured. There is diminished amplitude of the arterial waveforms in the right kidney which could correlate with renal artery stenosis. Evaluation with CTA or MRA of the abdomen is recommended. Per u/s of Fibromyalgia Normal TSH on 01-09-17 Negative carotid duplex of 01-10-17 Plan: Syncopal episode of undetermined etiology. Possibly d/t orthostatic hypotension d/t medications. We will stop antihypertensive. Ortho v/s unremarkable Ambulate in halls. Continue tele to evaluate for possible arrhythmia or bradycardia. If none found this admission then may need outpt teletypesetter monitor. Echocardiogram and stress echocardiogram today Physician Assessment Physician Assessment Lungs: clear Cor: reg No leg edema A&R * As documented in our note above that I updated at the time of this dictation ( italics) * Based on observations of this hospitalization, her htn appears mostly of the white-coat variety. We have advised cessation of her anti-htn regimen * We are initiating a 3-week ambulatory cardiac monitoring to eval for any significant arrhythmia * I spoke with her in detail and answered her questions * I also spoke in detail with ALISON Rutledge Jan 11, 2017 11:08 RADHA DELACRUZ MD FACP FAC CCDS Jan 11, 2017 16:43
[2017-01-11] MEDS ORDERED: SULF1TAB35 PO (17:37)
[2017-01-11] MEDS ORDERED: MUPI22OI2 TOP (17:37)
--- NOTE | 2017-01-11 17:39 | Discharge Inst-Simple/Standard ---
Discharge Inst-Standard Discharge Medications New, Converted or Re-Newed RX: Transmitted to Pharmacy Patient Instructions/Follow Up Plan of Care/Instructions/FU: Fwup with me in 1 week Activity as Tolerated: Yes Discharge Diet: No Restrictions ELEONORA BRYANT DO Jan 11, 2017 5:39 pm
[2017-01-11] MEDS ORDERED: DULOXETINE 60 MG PO SCH (21:00)
--- OUTSIDE RECORDS SUMMARY | 2017-01-12 17:38 | XMS REPORT | Continuity of Care Document ---
Author Author [facility] Organization [facility] Address Unknown Phone Unavailable Allergies Active Description Code Type Severity Reaction Onset Reported/Identified Relationship to Patient Clinical Status Yes No Allergy Information Available [id number] Drug Allergy Unknown N/A 05/10/2014 Yes No Known Drug Allergies [id number] Drug Allergy Unknown N/ A 01/09/2017 Medications Problems Date Dx Coded Attending Type Code Diagnosis Diagnosed By 10/17/2014 Ot V76.12 10/17/2014 ELEONORA BRYANT DO S Ot 793.89 10/17/2014 ELEONORA BRYANT DO S Ot V76.12 10/17/2014 VINOD SERRANO APRN Ot 793.80 10/17/2014 LIZ PIÑA HAT SIZER Ot 112.0 10/17/2014 LIZ PIÑAP Ot 306.4 10/18/2014 JUNIE FARRELL TEST TECHNICIAN Ot 626.8 10/21/2014 JUNIE FARRELL TEST TECHNICIAN Ot 626.8 10/31/2014 JUNIE FARRELL TEST TECHNICIAN Ot 626.8 01/03/2017 ELEONORA BRYANT DO S Ot 793.89 OTH (ABN) FINDINGS ON RADIOLOGICAL EXAMI 01/03/2017 ELEONORA BRYANT DO S Ot V76.12 OTH SCREEN MAMMO-MALIGN NEOPLASM OF DIANE 01/03/2017 VINOD SERRANO SUPERVISOR PUBLIC MESSAGE SERVICE Ot 793.80 UNSPEC ABNORMAL MAMMOGRAM 01/03/2017 LIZ PIÑA HAT SIZER Ot 112.0 THRUSH 01/03/2017 LIZ PIÑA HAT SIZER Ot 306.4 PSYCHOGENIC GI DISEASE 01/03/2017 JUNIE FARRELLP Ot 626.8 MENSTRUAL DISORDER NEC Procedures Results Test Result Range Complete blood count (CBC) with automated white blood cell (WBC) differential - 01/09/17 19:40 Blood leukocytes automated count (number/volume) 9.3 10*3/ uL 4.3-11.0 Blood erythrocytes automated count (number/volume) 4.63 10*6 /uL 4.35-5.85 Venous blood hemoglobin measurement (mass/volume) 13.8 g/dL 11.5-16.0 Blood hematocrit (volume fraction) 42 % 35-52 Automated erythrocyte mean corpuscular volume 90 [foz_us] 80-99 Automated erythrocyte mean corpuscular hemoglobin (mass per erythrocyte) 30 pg 25-34 Automated erythrocyte mean corpuscular hemoglobin concentration measurement ( mass/volume) 33 g/dL 32-36 Automated erythrocyte distribution width ratio 12.9 % 10.0-14.5 Automated blood platelet count (count/volume) 186 10*3/uL 130-400 Automated blood platelet mean volume measurement 12.7 [foz_ us] 7.4-10.4 Automated blood neutrophils/100 leukocytes 45 % 42-75 Automated blood lymphocytes/100 leukocytes 47 % 12-44 Blood monocytes/100 leukocytes 7 % 0-12 Automated blood eosinophils/100 leukocytes 1 % 0-10 Automated blood basophils/100 leukocytes 0 % 0-10 Blood neutrophils automated count (number/volume) 4.2 10*3 1.8-7.8 Blood lymphocytes automated count (number/volume) 4.3 10*3 1.0-4.0 Blood monocytes automated count (number/volume) 0.6 10*3 0.0-1.0 Automated eosinophil count 0.1 10*3/uL 0.0-0.3 Automated blood basophil count (count/volume) 0.0 10*3/uL 0.0-0.1 PT panel in platelet poor plasma by coagulation assay - 01/09/17 19:40 Prothrombin time (PT) in platelet poor plasma by coagulation assay 12.9 s 12.2-14.7 INR in platelet poor plasma or blood by coagulation assay 1.0 0.8-1.4 Activated partial thromboplastin time (aPTT) in platelet poor plasma bycoagulation assay - 01/09/17 19:40 Activated partial thromboplastin time (aPTT) in platelet poor plasma bycoagulation assay 26 s 24-35 Comprehensive metabolic panel - 01/09/17 19:40 Serum or plasma sodium measurement (moles/volume) 137 mmol/ L 135-145 Serum or plasma potassium measurement (moles/volume) 3.7 mmol/L 3.6-5.0 Serum or plasma chloride measurement (moles/volume) 101 mmol /L 98-107 Carbon dioxide 22 mmol/L 21-32 Serum or plasma anion gap determination (moles/volume) 14 mmol/L 5-14 Serum or plasma urea nitrogen measurement (mass/volume) 18 mg/dL 7-18 Serum or plasma creatinine measurement (mass/volume) 1.11 mg /dL 0.60-1.30 Serum or plasma urea nitrogen/creatinine mass ratio 16 0-20 Serum or plasma creatinine measurement with calculation of estimated glomerular filtration rate 52 NRG Serum or plasma glucose measurement (mass/volume) 121 mg/dL 70-105 Serum or plasma calcium measurement (mass/volume) 9.2 mg/dL 8.5-10.1 Serum or plasma total bilirubin measurement (mass/volume) 0.5 mg/dL 0.1-1.0 Serum or plasma alkaline phosphatase measurement (enzymatic activity/volume) 47 U/L 40-136 Serum or plasma aspartate aminotransferase measurement (enzymatic activity/ volume) 20 U/L 5-34 Serum or plasma alanine aminotransferase measurement (enzymatic activity/volume ) 12 U/L 0-55 Serum or plasma protein measurement (mass/volume) 7.2 g/dL 6.4-8.2 Serum or plasma albumin measurement (mass/volume) 4.4 g/dL 3.2-4.5 Magnesium - 01/09/17 19:40 Magnesium 2.3 mg/dL 1.8-2.4 Serum or plasma creatine kinase measurement (enzymatic activity/volume) - 01/09 19:40 Serum or plasma creatine kinase measurement (enzymatic activity/volume) 87 U/L 29-168 Serum or plasma lithium measurement (moles/volume) - 01/09/17 19:40 BNP level < pg/mL <100.0 Serum or plasma creatine kinase MB measurement (enzymatic activity/volume) - 19:40 Serum or plasma creatine kinase MB measurement (enzymatic activity/volume) 0.7 ng/mL <6.6 Serum or plasma troponin i.cardiac measurement (mass/volume) - 01/09/17 19:40 Serum or plasma troponin i.cardiac measurement (mass/volume) < ng/mL <0.30 Serum or plasma thyrotropin measurement by detection limit <=0.05 miu/l (units/ volume) - 01/09/17 19:40 Serum or plasma thyrotropin measurement by detection limit <=0.05 miu/l (units/ volume) 1.72 u[iU]/mL 0.35-4.94 Complete urinalysis with reflex to culture - 01/09/17 21:50 Urine color determination YELLOW NRG Urine clarity determination CLEAR NRG Urine pH measurement by test strip 6.5 5 -9 Specific gravity of urine by test strip 1.010 1.016-1.022 Urine protein assay by test strip, semi-quantitative 1+ NEGATIVE Urine glucose detection by automated test strip NEGATIVE NEGATIVE Erythrocytes detection in urine sediment by light microscopy 2+ NEGATIVE Urine ketones detection by automated test strip NEGATIVE NEGATIVE Urine nitrite detection by test strip NEGATIVE NEGATIVE Urine total bilirubin detection by test strip NEGATIVE NEGATIVE Urine urobilinogen measurement by automated test strip (mass/volume) NORMAL NORMAL Urine leukocyte esterase detection by dipstick NEGATIVE NEGATIVE Automated urine sediment erythrocyte count by microscopy (number/high power field) NONE NRG Automated urine sediment leukocyte count by microscopy (number/high power field ) NONE NRG Bacteria detection in urine sediment by light microscopy TRACE NRG Squamous epithelial cells detection in urine sediment by light microscopy RARE NRG Crystals detection in urine sediment by light microscopy NONE NRG Casts detection in urine sediment by light microscopy NONE NRG Mucus detection in urine sediment by light microscopy NEGATIVE NRG Complete urinalysis with reflex to culture NO NRG Serum or plasma troponin i.cardiac measurement (mass/volume) - 01/10/17 01:58 Serum or plasma troponin i.cardiac measurement (mass/volume) < ng/mL <0.30 Myoglobin, serum - 01/10/17 01:58 Myoglobin, serum 67.8 ng/mL 10.0-92.0 Complete blood count (CBC) with automated white blood cell (WBC) differential - 01/10/17 06:27 Blood leukocytes automated count (number/volume) 9.6 10*3/ uL 4.3-11.0 Blood erythrocytes automated count (number/volume) 4.57 10*6 /uL 4.35-5.85 Venous blood hemoglobin measurement (mass/volume) 13.4 g/dL 11.5-16.0 Blood hematocrit (volume fraction) 41 % 35-52 Automated erythrocyte mean corpuscular volume 90 [foz_us] 80-99 Automated erythrocyte mean corpuscular hemoglobin (mass per erythrocyte) 29 pg 25-34 Automated erythrocyte mean corpuscular hemoglobin concentration measurement ( mass/volume) 33 g/dL 32-36 Automated erythrocyte distribution width ratio 12.9 % 10.0-14.5 Automated blood platelet count (count/volume) 186 10*3/uL 130-400 Automated blood platelet mean volume measurement 12.3 [foz_ us] 7.4-10.4 Automated blood neutrophils/100 leukocytes 56 % 42-75 Automated blood lymphocytes/100 leukocytes 35 % 12-44 Blood monocytes/100 leukocytes 8 % 0-12 Automated blood eosinophils/100 leukocytes 1 % 0-10 Automated blood basophils/100 leukocytes 0 % 0-10 Blood neutrophils automated count (number/volume) 5.4 10*3 1.8-7.8 Blood lymphocytes automated count (number/volume) 3.3 10*3 1.0-4.0 Blood monocytes automated count (number/volume) 0.7 10*3 0.0-1.0 Automated eosinophil count 0.1 10*3/uL 0.0-0.3 Automated blood basophil count (count/volume) 0.0 10*3/uL 0.0-0.1 Comprehensive metabolic panel - 01/10/17 06:27 Serum or plasma sodium measurement (moles/volume) 138 mmol/ L 135-145 Serum or plasma potassium measurement (moles/volume) 3.7 mmol/L 3.6-5.0 Serum or plasma chloride measurement (moles/volume) 104 mmol /L 98-107 Carbon dioxide 23 mmol/L 21-32 Serum or plasma anion gap determination (moles/volume) 11 mmol/L 5-14 Serum or plasma urea nitrogen measurement (mass/volume) 14 mg/dL 7-18 Serum or plasma creatinine measurement (mass/volume) 0.94 mg /dL 0.60-1.30 Serum or plasma urea nitrogen/creatinine mass ratio 15 0-20 Serum or plasma creatinine measurement with calculation of estimated glomerular filtration rate > NRG Serum or plasma glucose measurement (mass/volume) 95 mg/dL 70-105 Serum or plasma calcium measurement (mass/volume) 9.1 mg/dL 8.5-10.1 Serum or plasma total bilirubin measurement (mass/volume) 0.6 mg/dL 0.1-1.0 Serum or plasma alkaline phosphatase measurement (enzymatic activity/volume) 44 U/L 40-136 Serum or plasma aspartate aminotransferase measurement (enzymatic activity/ volume) 17 U/L 5-34 Serum or plasma alanine aminotransferase measurement (enzymatic activity/volume ) 11 U/L 0-55 Serum or plasma protein measurement (mass/volume) 6.8 g/dL 6.4-8.2 Serum or plasma albumin measurement (mass/volume) 4.2 g/dL 3.2-4.5 Encounters ACCT No. Visit Date/Time Discharge Status Pt. Type Provider Facility Loc./Unit Complaint [id number] 10/17/2014 15:51:00 2014 23:59:59 CLS Outpatient JUNIE FARRELL TEST TECHNICIAN [facility] RAD DUB [id number] 05/10/2014 15:06:00 2013 23:59:59 CLS Outpatient LIZ PIÑA HAT SIZER [facility] RAD GLOBUS SENSATION [id number] 12/05/2012 12:36:00 2012 23:59:59 CLS Outpatient VINOD SERRANO APRN [facility] RAD FOLLOW-UP [id number] 11/20/2012 14:47:00 2012 23:59:59 CLS Outpatient ELEONORA BRYANT DO S [facility] RAD SCREENING [id number] 01/09/2017 21:15:00 ACT Inpatient ELEONORA BRYANT DO S [facility] 4TH SYNCOPE,CLOSED HEAD INJ,FACIAL ABRASIONS [id number] 01/05/2017 08:04:00 ACT Outpatient NATHALIA ALEGREP [facility] RAD NEW ONSET HTN [id number] 01/03/2017 14:15:00 ACT Outpatient NATHALIA ALEGREP [facility] RAD NEW ONSET HTN [id number] 02/13/2010 08:52:00 Document Registration
--- OUTSIDE RECORDS SUMMARY | 2017-01-13 09:00 | XMS REPORT | Continuity of Care Document ---
Author Author [facility] Organization [facility] Address Unknown Phone Unavailable Allergies Active Description Code Type Severity Reaction Onset Reported/Identified Relationship to Patient Clinical Status Yes No Allergy Information Available [id number] Drug Allergy Unknown N/A 05/10/2014 Yes No Known Drug Allergies [id number] Drug Allergy Unknown N/ A 01/09/2017 Medications Problems Date Dx Coded Attending Type Code Diagnosis Diagnosed By 10/17/2014 Ot V76.12 10/17/2014 ELEONORA BRYANT DO S Ot 793.89 10/17/2014 ELEONORA BRYANT DO S Ot V76.12 10/17/2014 VINOD SERRANO APRN Ot 793.80 10/17/2014 LIZ PIÑA BEAM DOFFER Ot 112.0 10/17/2014 LIZ PIÑA BEAM DOFFER Ot 306.4 10/18/2014 JUNIE FARRELL ECONOMIC GEOGRAPHER Ot 626.8 10/21/2014 JUNIE FARRELL ECONOMIC GEOGRAPHER Ot 626.8 10/31/2014 JUNIE FARRELL ECONOMIC GEOGRAPHER Ot 626.8 01/03/2017 ELEONORA BRYANT DO S Ot 793.89 OTH (ABN) FINDINGS ON RADIOLOGICAL EXAMI 01/03/2017 ELEONORA BRYANT DO S Ot V76.12 OTH SCREEN MAMMO-MALIGN NEOPLASM OF DIANE 01/03/2017 VINOD SERRANO PALLETIZER Ot 793.80 UNSPEC ABNORMAL MAMMOGRAM 01/03/2017 LIZ PIÑA BEAM DOFFER Ot 112.0 THRUSH 01/03/2017 LIZ PIÑA BEAM DOFFER Ot 306.4 PSYCHOGENIC GI DISEASE 01/03/2017 JUNIE [...] Status Pt. Type Provider Facility Loc./Unit Complaint [id number] 01/09/2017 21:15:00 2016 17:55:00 DIS Inpatient ELEONORA BRYANT DO [facility] 4TH SYNCOPE,CLOSED HEAD INJ, FACIAL ABRASIONS [id number] 10/17/2014 15:51:00 2014 23:59:59 CLS Outpatient JUNIE FARRELL ECONOMIC GEOGRAPHER [facility] RAD DUB [id number] 05/10/2014 15:06:00 2013 23:59:59 CLS Outpatient LIZ PIÑA BEAM DOFFER [facility] RAD GLOBUS SENSATION [id number] 12/05/2012 12:36:00 2012 23:59:59 CLS Outpatient VINOD SERRANO APRN [facility] RAD FOLLOW-UP [id number] 11/20/2012 14:47:00 2012 23:59:59 CLS Outpatient ELEONORA BRYANT DO [facility] RAD SCREENING [id number] 01/05/2017 08:04:00 ACT Outpatient NATHALIA ALEGRE ECONOMIC GEOGRAPHER [facility] RAD NEW ONSET HTN [id number] 01/03/2017 14:15:00 ACT Outpatient NATHALIA ALEGRE ECONOMIC GEOGRAPHER [facility] RAD NEW ONSET HTN [id number] 02/13/2010 08:52:00 Document Registration
== END 2017-01-11 17:38 | disposition home or self-care (01) ==
LOC: EDUNIT# 19:40 → ER 19:43 → 4TH 21:15 → UNDOADMOB 21:15 → 4TH 22:45 → UNDODISOB 01-11 17:55
PROVIDERS: ADMIT Family Medicine; ATTEND Family Medicine
DX: R55 Syncope and collapse (principal); S01.512A Laceration without foreign body of oral cavity, initial encounter; S00.31XA Abrasion of nose, initial encounter; S00.512A Abrasion of oral cavity, initial encounter; S00.81XA Abrasion of other part of head, initial encounter; S13.4XXA Sprain of ligaments of cervical spine, initial encounter; I10 Essential (primary) hypertension; F17.210 Nicotine dependence, cigarettes, uncomplicated; R06.09 Other forms of dyspnea; M79.7 Fibromyalgia; F41.9 Anxiety disorder, unspecified; W00.1XXA Fall from stairs and steps due to ice and snow, initial encounter; Y92.018 Other place in single-family (private) house as the place of occurrence of the external cause; Z23 Encounter for immunization
CPT/HCPCS: 36415; 70450; 70486; 71010; 72125; 72128; 72131; 72170; 75635; 80053; 81000; 82550; 82553; 83735; 83874; 83880; 84443; 84484; 85025; 85610; 85730; 90715; 93005; 93041; 93306; 93880; G0378

== ENCOUNTER 2017-04-11 06:15 | Outpatient (RCR) | payer OTHER ==
[2017-04-08 14:14] LABS: BASOPHILS % (AUTO) 0 % (0-10); EOSINOPHILS # (AUTO) 0.1 10^3/uL (0.0-0.3); EOSINOPHILS % (AUTO) 1 % (0-10); LYMPHOCYTES # (AUTO) 3.1 X 10^3 (1.0-4.0); LYMPHOCYTES % (AUTO) 40 % (12-44); MEAN CORPUSCULAR HEMOGLOBIN 30 PG (25-34); MEAN CORPUSCULAR HGB CONC 33 G/DL (32-36); MEAN CORPUSCULAR VOLUME 90 FL (80-99); MEAN PLATELET VOLUME 11.8 FL (7.4-10.4); MONOCYTES # (AUTO) 0.6 X 10^3 (0.0-1.0); MONOCYTES % (AUTO) 7 % (0-12); NEUTROPHILS % (AUTO) 52 % (42-75); PLATELET COUNT 214 10^3/uL (130-400); RED BLOOD COUNT 4.51 10^6/uL (4.35-5.85); RED CELL DISTRIBUTION WIDTH 12.6 % (10.0-14.5); WHITE BLOOD COUNT 7.7 10^3/uL (4.3-11.0)
[2017-04-08 14:37] LABS: ALANINE AMINOTRANSFERASE 12 U/L (0-55); ALBUMIN 4.4 GM/DL (3.2-4.5); ANION GAP 9 MMOL/L (5-14); ASPARTATE AMINO TRANSFERASE 19 U/L (5-34); BILIRUBIN,TOTAL 0.5 MG/DL (0.1-1.0); BLOOD UREA NITROGEN 13 MG/DL (7-18); BUN/CREATININE RATIO 17; CALCIUM 9.2 MG/DL (8.5-10.1); CARBON DIOXIDE 24 MMOL/L (21-32); CHLORIDE 107 MMOL/L (98-107); CREATININE SERUM 0.75 MG/DL (0.60-1.30); GFR ESTIMATED > 60; GLUCOSE 88 MG/DL (70-105); MAGNESIUM 2.2 MG/DL (1.8-2.4); POTASSIUM 3.9 MMOL/L (3.6-5.0); SODIUM 140 MMOL/L (135-145); TOTAL PROTEIN 7.4 GM/DL (6.4-8.2)
[2017-04-08 14:55] LABS: ERYTHROCYTE SEDIMENTATION RATE 13 MM/HR (0-20)
[2017-04-08 14:58] LABS: THYROID STIMULATING HORMONE 0.67 UIU/ML (0.35-4.94)
[~2017-04-11 06:15] MED LIST: AMPH10CA PO; DEXT10TA9 PO; DULO60CA6 PO; LISI1TAB8 PO; MUPI22OI2 TOP; SULF1TAB35 PO
[2017-04-12 08:03] LABS: NUMBER HOURS COLLECT 24 HOURS; URINE VOLUME CAT 1800 ML; URINE VOLUME REF 1800 ML
[2017-04-12 08:04] LABS: NUMBER HOURS COLLECTED 24 HOURS; URINE VOLUME REF 1800 ML
[2017-04-13 07:31] LABS: RENIN 7.3 ng/mL/hr
[2017-04-13 07:33] LABS: ALDOSTERONE/RENING ACTIVITY CA 4.4 ratio (<=25.0)
[2017-04-15 17:19] LABS: CREAT/CORTI URINE REF LAB 1026 MG/DAY (700-1600); CREATININE SEROTONIN 1026 MG/D (700-1600)
[2017-04-15 17:20] LABS: CREATININE URINE REF MG/DL 57 MG/DL
[2017-04-15 17:21] LABS: CORTISOL CREATININE RATIO URIN 34.91 ug/g CRT; CORTISOL INTERP See Footnote
[2017-04-15 17:22] LABS: 5 HIAA SEROTONIN URINE MG/L 2.2 MG/L; 5 HIAA SEROTONIN URINE RATIO 4 mg/gCR (0-14)
[2017-04-15 17:23] LABS: 5 HIAA URINE INTERPRETATION See Footnote; 5HIAA CREATININE 57 MG/DL
[2017-04-15 17:24] LABS: NOREPINEPHRINE RANDOM URINE 26 ug/L
[2017-04-15 17:25] LABS: EPINEPHERINE URINE 2 UG/DAY (1-7)
[2017-04-15 17:26] LABS: CATECHOLAMINES URINE INTERP See Footnote; CREATININE CAT FR MG/DL 57 MG/DL
[2017-04-15 17:27] LABS: CREATININE CATECHOLAMINES MG/D 1026 MG/D (700-1600); DOPAMINE RATIO 170 UG/G CRT (0-250); NOREPINEPHRINE RATIO 46 H UG/G CRT (0-45)
[2017-04-15 17:28] LABS: CREATININE VMA TIMED 24 HOUR 1026 MG/D (700-1600); VMA 24 HOUR URINE 2.1 MG/L
[2017-04-15 17:29] LABS: VMA/CREATININE 57 MG/DL
[2017-04-15 17:31] LABS: VMA CREATININE RATIO 4 MG/GCR (0-6); VMA URINE INTERPRETATION See Footnote
== END 2017-04-11 13:22 | disposition home or self-care (01) ==
LOC: LAB 06:15 → EDSTATUS 04-20 10:39
PROVIDERS: ATTEND Internal Medicine Cardiovascular Disease
DX: I10 Essential (primary) hypertension (principal); R55 Syncope and collapse; I73.89 Other specified peripheral vascular diseases
CPT/HCPCS: 36415; 80053; 82088; 82384; 82530; 83497; 83735; 84156; 84244; 84443; 84585; 85025; 85652

== ENCOUNTER → 2018-07-12 | Outpatient (CLI) | payer OTHER ==
--- NOTE | 2018-07-12 13:16 | Diagnostic Imaging Report ---
INDICATION: Fall down stairs. Trauma to the head. TECHNIQUE: Routine non contrast-enhanced axial images were obtained from the skull base to the vertex. COMPARISON: 01/09/2017 FINDINGS: The ventricles and cortical sulci are normal in size and contour. There is no midline shift or mass-effect. No acute intra-axial hemorrhage is seen. There are no abnormal areas of increased or decreased density to suggest acute hemorrhage or edema. No extra-axial masses or collections are present. The bony calvarium is intact. The visualized paranasal sinuses are unremarkable. The mastoid air cells are clear. IMPRESSION: 1. No acute intracranial abnormality. No CT evidence of mass, acute infarct or intracranial hemorrhage. Dictated by: Dictated on workstation # [id number]
== END ==
LOC: RAD 12:38
PROVIDERS: ATTEND Family Medicine
DX: S09.90XA Unspecified injury of head, initial encounter (principal); W10.9XXA Fall (on) (from) unspecified stairs and steps, initial encounter; I10 Essential (primary) hypertension
CPT/HCPCS: 70450

== ENCOUNTER → 2019-02-22 | Outpatient (CLI) | payer BC, OTHER ==
--- NOTE | 2019-02-22 10:38 | Diagnostic Imaging Report ---
Indication: Palpable lumps in the left breast Correlation is made with prior mammogram from 11/20/2012 and 02/13/2010. 2-D and 3-D bilateral diagnostic mammography was performed with CAD. BB markers are placed at the area of palpable abnormality in the left breast. This corresponds to the 12 o'clock location left breast as well as the left axilla. Both breasts remain heterogeneously dense, limiting sensitivity of mammography. No dominant mass or malignant-appearing microcalcifications are seen. Axillary unremarkable. Area of a palpable abnormality in the left axilla was not included on these radiographs due to the very high nature of the abnormality. Impression: No mammographic features suspicious for malignancy are identified. Even so, directed sonographic interrogation of the areas of palpable abnormality left breast is recommended and will be performed today. Dictated by: Dictated on workstation # [id number]
--- NOTE | 2019-02-22 10:40 | Diagnostic Imaging Report ---
Indication: Palpable lumps in the left breast. Correlation made with diagnostic mammogram earlier same day. Sonographic interrogation of the area of palpable abnormality in the left axilla was performed. There is a hypoechoic mass just below the skin surface measuring 8 mm x 4 mm x 7 mm. This most likely represents a sebaceous cyst. In addition, area of palpable abnormality in the 12 o'clock location of the left breast was evaluated. No sonographic abnormality is seen. No solid or cystic mass is seen. Impression: BI-RADS 2 Probable sebaceous cyst at the area of palpable abnormality in the left axilla. No other significant abnormality is seen. ACR BI-RADS Category 2: Benign findings. Result letter will be mailed to the patient. Note: At least 10% of breast cancer is not imaged by mammography. Dictated by: Dictated on workstation # [id number]
== END ==
LOC: RAD 09:20
PROVIDERS: ATTEND Nurse Practitioner Family
DX: N63.20 Unspecified lump in the left breast, unspecified quadrant (principal); R22.9 Localized swelling, mass and lump, unspecified
CPT/HCPCS: 76642; 77066

== ENCOUNTER → 2019-08-15 | Outpatient (CLI) | payer BC ==
[~2019-08-15] MED LIST changes: -AMPH10CA PO; +DEXT10CA18 PO; +LISI1TAB25 PO; -LISI1TAB8 PO
--- NOTE | 2019-08-15 12:29 | Diagnostic Imaging Report ---
PROCEDURE: US Non-ob pelvis comp/trans. TECHNIQUE: Multiple realtime grayscale images were obtained of the pelvis in various projections endovaginally. Transabdominal imaging was also performed. INDICATION: Heavy periods, clotting, pelvic pain. COMPARISON: None FINDINGS: The uterus is normal in size. The endometrium is normal in thickness measuring 5 mm. No uterine masses are seen. No free fluid is seen. The ovaries are not seen bilaterally, which appears to be due to bowel gas. IMPRESSION: 1. No uterine masses or endometrial thickening is seen. The ovaries are not seen due to bowel gas. Dictated by: Dictated on workstation # [id number]
== END ==
LOC: RAD 09:59
PROVIDERS: ATTEND Nurse Practitioner Family
DX: N92.6 Irregular menstruation, unspecified (principal)
CPT/HCPCS: 76830; 76856

== ENCOUNTER → 2021-01-13 | Outpatient (CLI) | payer BC ==
[~2021-01-13] MED LIST changes: -LISI1TAB25 PO; +LISI1TAB46 PO
== END ==
LOC: CARD 12:30
PROVIDERS: ATTEND Family Medicine
DX: R00.2 Palpitations (principal)
CPT/HCPCS: 93005

== ENCOUNTER → 2021-07-15 | Outpatient (CLI) | payer BC ==
[~2021-07-15] MED LIST changes: -DULO60CA6 PO; +DULO60CA7 PO; -SULF1TAB35 PO; +SULF1TAB38 PO
--- NOTE | 2021-07-15 08:23 | Diagnostic Imaging Report ---
EXAMINATION: CT head without contrast. TECHNIQUE: Multiple contiguous axial images were obtained through the brain without the use of intravenous contrast. All CT scans use one or more of the following dose optimizing techniques: automated exposure control, MA and/or KvP adjustment based on patient size and exam type or iterative reconstruction. HISTORY: CEPHALGIA, MEMORY LOSS COMPARISON: None available. FINDINGS: The ventricles and sulci are normal. No abnormal attenuation of brain parenchyma is present. No acute intracranial hemorrhage or abnormal extra-axial fluid collections are present. No hyperdense vessel. The calvarium is intact. The mastoid air cells are clear. The visualized paranasal sinuses are clear. The orbits are normal. IMPRESSION: 1. No acute intracranial abnormality. Dictated by: Dictated on workstation # [id number]
--- NOTE | 2021-07-15 08:39 | Diagnostic Imaging Report ---
INDICATION: Chronic low back pain. FINDINGS: Three views of the lumbosacral spine show normal height of the vertebral bodies. There is mild disc space narrowing at L3-L4 and L4-L5 with mild spondylosis. There is 1 to 2 mm of spondylolisthesis at L4-L5. There are degenerated facets progressively worse down to L5-S1. No fracture or other acute abnormality is seen. IMPRESSION: There is mild degenerative disc disease and mild to moderate degenerative facet disease with a grade 1 spondylolisthesis at L4-L5. No acute abnormality is seen. Dictated by: Dictated on workstation # [id number]
== END ==
LOC: RAD 07:45
PROVIDERS: ATTEND Family Medicine
DX: M47.816 Spondylosis without myelopathy or radiculopathy, lumbar region (principal); M51.36 Other intervertebral disc degeneration, lumbar region; M43.16 Spondylolisthesis, lumbar region; R51.9 Headache, unspecified; R41.3 Other amnesia
CPT/HCPCS: 70450; 72100

== ENCOUNTER → 2021-09-01 | Outpatient (CLI) | payer OTHER | LOC: LABNPT 06:20 | PROVIDERS: ATTEND Family Medicine | DX: U07.1 COVID-19 (principal) | CPT/HCPCS: 87635 ==

== ENCOUNTER → 2021-10-12 | Outpatient (CLI) | payer OTHER ==
--- NOTE | 2021-10-12 18:10 | Diagnostic Imaging Report ---
INDICATION: Pelvic pain with skull lesion. Elevated ESR. TECHNIQUE: 24 mCi of technetium-99m MDP was given IV. Three-hour delayed whole body imaging. FINDINGS: Good uptake is noted. There is mild increased uptake in the posterior elements in the lower lumbosacral spine. There is also subtle uptake along the patellofemoral joint on the left. No calvarial lesions are seen. IMPRESSION: No changes are seen to suggest metastatic disease or pathologic fractures. Findings consistent with degenerative changes in the lumbosacral spine and left patellofemoral joint. Dictated by: Dictated on workstation # [id number]
== END ==
LOC: CARD 12:00
PROVIDERS: ATTEND Family Medicine
DX: R10.2 Pelvic and perineal pain (principal); R70.0 Elevated erythrocyte sedimentation rate; M89.9 Disorder of bone, unspecified
CPT/HCPCS: 78306; A9503

== ENCOUNTER → 2022-12-23 | Outpatient (CLI) | payer OTHER ==
--- NOTE | 2022-12-23 11:29 | Diagnostic Imaging Report ---
INDICATION: Routine screening. Comparison is made with prior mammogram from 02/22/2019. 2-D and 3-D bilateral screening mammography was performed with CAD. CAD is utilized. The current study was also evaluated with a Computer Aided Detection (CAD) system. Both breasts are heterogeneously dense, limiting the sensitivity of mammography. The parenchymal pattern is stable. No mass or malignant-appearing microcalcifications are seen. There are benign calcifications. Axillae are unremarkable. IMPRESSION: BI-RADS Category 2 No mammographic features suspicious for malignancy are identified. ACR BI-RADS Category 2: Benign findings. Result letter will be mailed to the patient. Note: At least 10% of breast cancer is not imaged by mammography. Dictated by: Dictated on workstation # [id number]
== END ==
LOC: RAD 07:36
PROVIDERS: ATTEND Family Medicine
DX: Z12.31 Encounter for screening mammogram for malignant neoplasm of breast (principal)
CPT/HCPCS: 77063; 77067

== ENCOUNTER 2023-01-06 08:40 | Outpatient (CLI) | payer OTHER ==
[~2023-01-06] VITALS: Ht 174.2 cm; Wt 87.1 kg
[2023-01-10] MEDS ORDERED: NF-VITD400 PO (12:53)
[2023-01-10] MEDS ORDERED: CYAN250010 PO (12:53)
[2023-01-10] MEDS ORDERED: METO50TA7 PO (12:53)
[2023-01-10] MEDS ORDERED: AMLO-250 PO (12:53)
[2023-01-10] MEDS ORDERED: IBUP-1779 PO (12:53)
[2023-01-10] MEDS ORDERED: NRT10C PO (12:53)
[2023-01-10] MEDS ORDERED: ASCO500T17 PO (12:53)
== END 2023-01-10 12:54 | disposition home or self-care (01) ==
LOC: PREOP 08:40
PROVIDERS: ATTEND Internal Medicine
DX: Z01.818 Encounter for other preprocedural examination (principal)

== ENCOUNTER 2023-01-14 08:32 | Day surgery (SDC) | payer OTHER ==
--- NOTE | 2023-01-07 08:43 | HISTORY AND PHYSICAL ---
COLONOSCOPY HISTORY AND PHYSICAL HISTORY OF PRESENT ILLNESS: The patient is a 52-year-old white female referred by Dr. Senior for her first screening colonoscopy. She is deemed to be of average risk and she is not aware of any family history for colon cancer. Denies abdominal pain, change in bowel habit, bright red blood per rectum, melena or change in weight. PAST MEDICAL HISTORY: Significant for hypertension. MEDICATIONS: On admission include metoprolol XL 50 mg daily, amlodipine 5 mg b.i.d., nortriptyline 2 at bedtime for insomnia, B12 and vitamin D supplements, unknown dose. PAST SURGICAL HISTORY: The patient reports no past surgeries. FAMILY HISTORY: Mother is still living at the age of 80, has a history of COPD, recently diagnosed thyroid cancer requiring thyroidectomy. Father of complications of congestive heart failure at age 76. Has one brother 59, who is alive and well. SOCIAL HISTORY: The patient is employed. Quit smoking over 12 years ago, [id number] history. Small volume alcohol intake, one to two drinks twice a week as I recall. REVIEW OF SYSTEMS: CONSTITUTIONAL: Denies night sweats, chills, fever or change in weight. GASTROINTESTINAL: As noted in the HPI. PULMONARY: Denies cough, wheezing or shortness of breath. CARDIOVASCULAR: Denies orthopnea, PND, pedal edema, syncope or chest discomfort. PHYSICAL EXAMINATION: GENERAL: Reveals a pleasant white female, appears to be in no acute distress. VITAL SIGNS: Weight 192 pounds, blood pressure 114/62. HEENT: Unremarkable. No evidence for pallor. Sclerae nonicteric. CHEST: Clear to auscultation. CARDIOVASCULAR: Reveals a regular rate and rhythm without murmur, S3, or S4. ABDOMEN: Soft, supple without mass, organomegaly, or tenderness. EXTREMITIES: Revealed no cyanosis, clubbing or edema. ASSESSMENT AND PLAN: The patient is being set up for screening colonoscopy, deemed to be of average risk. Her first. Prep instructions were given and questions were answered. I thank you for the referral of this pleasant lady. Job ID: [id number] DocumentID: [id number] Dictated Date: 01/05/2023 17:07:23 Prop And Scenery Maker Date: 01/05/2023 17:34:00 Dictated By: GABRIEL GALLEGOS MD
[~2023-01-14] VITALS: Ht 174 cm; Wt 87.1 kg
[~2023-01-14 08:32] MED LIST changes: +AMLO-250 PO; +ASCO500T17 PO; +CYAN250010 PO; +IBUP-1779 PO; +METO50TA7 PO; +NF-VITD400 PO; +NRT10C PO
[2023-01-14] MEDS ORDERED: LACTATED RINGERS 1,000 ML IV STA (08:33)
--- NOTE | 2023-01-14 08:56 | Pre-Op Note & Conscious Sedat ---
Pre-Operative Progress Note Date H&P Reviewed: Jan 14, 2023 Time H&P Reviewed: 08:56 History & Physical: H&P Reviewed, Patient Examed, No changes noted Pre-Op Diagnosis: screening Moderate Sedation PreProcedure ASA Score 2 Airway Lungs Heart ASA score ASA 1: a normal healthy patient ASA 2: a patient with a mild systemic disease (mid diabetes, controlled hypertension, obesity ASA 3: a patient with a severe systemic disease that limits activity (angina, COPD, prior Myocardial infarction) ASA 4: a patient with an incapacitating disease that is a constant threat to life (CHF, renal failure) ASA 5: a moribund patient not expected to survive 24 hrs. (ruptured aneurysm) ASA 6: a declared brain- patient whose organs are being harvested. For emergent operations, add the letter E after the classification Mallampati Classification Grade 1 Sedation Plan Analgesia, Amnesia, Plan communicated to team members, Discussed options with patient/fam, Discussed risks with patient/fam The patient is an appropriate candidate to undergo the planned procedure, sedation, and anesthesia. The patient immediately re-assessed prior to indication. GABRIEL GALLEGOS MD Jan 14, 2023 08:56
[2023-01-14 09:04] VITALS: BP 148/90
[2023-01-14] MEDS ORDERED: PROPOFOL INJECTION 50 ML IV ONE (09:27)
[2023-01-14] MEDS ORDERED: MIDAZOLAM 2 MG/2 ML (VERSED) VIAL ONE (09:27)
[2023-01-14 09:55] VITALS: BP 119/63
--- NOTE | 2023-01-14 09:55 | Progress Note-Post Operative ---
Post-Procedure Note Physician (s)/Line Maintainer (s) Physician GABRIEL GALLEGOS MD Pre-Procedure Diagnosis Pre-Procedure Diagnosis: screening Post-Procedure Diagnosis Post-operative diagnosis: Prior to undergoing colonoscopy digital rectal evaluation was performed. Anal sphincter tone was normal and the perianal reflexes intact. No abnormalities noted on digital inspection of the anal canal or distal rectal vault. The colonoscope was then inserted into the rectum and under direct visualization advanced to the cecum. The cecum was identified by identification of the ileocecal valve and the cecal strap. Photographic documentation was obtained. Careful inspection was made as the colonoscope withdrawn. Quality the prep was good. Findings: There are no evidence for internal or external hemorrhoids. Present the proximal rectum was a 2 mm sessile hyperplastic appearing polyp was photographed and biopsied and ablated with hot forceps with no subsequent blood loss. The sigmoid colon save for one small diverticulum was unremarkable. The descending colon splenic flexure transverse colon hepatic flexure ascending colon and cecum were unremarkable as well. 1 diminutive polyp was removed via hot forceps from the proximal rectum and one small sigmoid diverticulum was noted. This is otherwise normal colonoscopy to cecum. Would advocate consideration for repeat screening colonoscopy in 10 years. I thank you for the furl this pleasant lady sincerely Gabriel Gallegos MD. CC: GABRIEL Woo MD Jan 14, 2023 09:55
--- NOTE | 2023-01-14 09:57 | Anesthesia-General Post-Op ---
MAC Patient Condition Mental Status/LOC: Same as Preop Cardiovascular: Satisfactory Nausea/Vomiting: Absent Respiratory: Satisfactory Pain: Controlled Complications: Absent Post Op Complications Complications None Follow Up Care/Instructions Patient Instructions None needed. Anesthesiology Discharge Order Discharge Order Patient is doing well, no complaints, stable vital signs, no apparent adverse anesthesia problems. No complications reported per nursing. ALEJANDRO HUSSEIN ARTIST MANNEQUIN COLORING Jan 14, 2023 09:57
[2023-01-14 10:00] VITALS: BP 119/63
[2023-01-14 10:22] VITALS: BP 119/63
== END 2023-01-14 10:49 | disposition home or self-care (01) ==
LOC: ENDO 08:32
PROVIDERS: ATTEND Internal Medicine
DX: Z12.11 Encounter for screening for malignant neoplasm of colon (principal); K62.1 Rectal polyp; K57.30 Diverticulosis of large intestine without perforation or abscess without bleeding; G47.00 Insomnia, unspecified; C73 Malignant neoplasm of thyroid gland; Z87.891 Personal history of nicotine dependence; Z79.899 Other long term (current) drug therapy
CPT/HCPCS: 84703

== ENCOUNTER → 2023-04-05 | Outpatient (CLI) | payer OTHER, SELFPAY ==
--- NOTE | 2023-04-05 16:38 | Diagnostic Imaging Report ---
INDICATION: Hypertension, family history of heart disease and hypercholesterolemia CT coronary calcium study performed with noncontrast images of the heart followed by calculation of cardiac score. Dose reduction protocol was used. Visualized portion of the mediastinum shows no adenopathy. There is no pleural fluid. The visualized portions of the lungs show no focal infiltrates. There were no significant coronary artery calcifications visualized in any territory. IMPRESSION: Coronary calcium score was 0, no evidence of coronary calcification. Dictated by: Dictated on workstation # [id number]
== END ==
LOC: RAD 12:45
PROVIDERS: ATTEND Family Medicine
DX: I10 Essential (primary) hypertension (principal); E78.00 Pure hypercholesterolemia, unspecified; Z82.49 Family history of ischemic heart disease and other diseases of the circulatory system
CPT/HCPCS: 75571